=== PATIENT | male | born 1975 | race Caucasian/White ===

== ENCOUNTER 2023-03-01 15:39 | Emergency (ER) | payer OTHER ==
[~2023-03-01] VITALS: Ht 182.9 cm; Wt 82.0 kg
[~2023-03-01 15:39] MED LIST: KEPP500 PO; NIFE20CA PO; TOPA200 PO
[2023-03-01 15:49] VITALS: O2SAT 99
[2023-03-01] MEDS ORDERED: LEVETIRACETAM 1000MG PREMIX 100 ML IV ONE (16:15)
[2023-03-01 16:42] LABS: BASOPHILS % 0.6 % (0.0-2.0); EOSINOPHILS % 0.5 % (0.0-5.0); HEMATOCRIT. 42.1 % (42.0-52.0); HEMOGLOBIN. 14.1 g/dL (14.0-18.0); LYMPHOCYTES % 34.7 % (20.0-50.0); MEAN CORPUSCULAR HEMOGLOBIN 32.5 pg (28.0-32.0); MEAN CORPUSCULAR HGB CONC 33.4 g/dL (31.0-37.0); MEAN CORPUSCULAR VOLUME 97.3 fL (80.0-94.0); MONOCYTES % 10.3 % (2.0-8.0); NEUTROPHILS % 53.9 % (40.0-76.0); PLATELET 328 x1000/uL (130-400); RED BLOOD CELL COUNT 4.33 mill/uL (4.7-6.1); RED CELL DISTRIBUTION WIDTH 14.7 % (11.6-14.6); WHITE BLOOD COUNT 4.8 x1000/uL (4.5-11.0)
[2023-03-01 16:48] LABS: CHLORIDE 115 mEq/L (98-107); INDEX HEMOLYSI 2 (1-3); INDEX ICTERIC 1 (1-4); INDEX LIPEMIC 1 (1-3); POTASSIUM 3.2 mEq/L (3.5-5.1); SODIUM 143 mEq/L (136-145)
[2023-03-01 16:56] LABS: ALANINE AMINOTRANSFERASE 106 IU/L (13-61); ALBUMIN 3.9 g/dL (3.4-5.0); ASPARTATE AMINOTRANSFERASE 61 IU/L (15-37); BILIRUBIN TOTAL 0.4 mg/dL (0.1-1.0); CALCIUM 8.8 mg/dL (8.5-10.1); CARBON DIOXIDE 16 mEq/L (21-32); CREATININE 0.7 mg/dL (0.6-1.3); GLUCOSE 128 mg/dL (70-105); PROTEIN TOTAL 7.5 g/dL (6.0-8.3); UREA NITROGEN BLOOD 10 mg/dL (7-21)
[2023-03-01] MEDS ORDERED: TOPIRAMATE 100MG TABLET PO SCH (19:45)
[2023-03-01] MEDS ORDERED: CLONIDINE 0.1MG TABLET PO ONE (21:00)
[2023-03-01] MEDS ORDERED: ACETAMINOPHEN 325MG TABLET PO ONE (23:30)
[2023-03-01] MEDS ORDERED: ACET-2708 MT (23:44)
[2023-03-02 00:45] VITALS: BP 156/110; PULSE 89; RESP 20; TEMP 98.1
== END 2023-03-02 00:45 | disposition home or self-care (01) ==
LOC: ER 15:39
DX: R56.9 Unspecified convulsions (principal); I10 Essential (primary) hypertension; E78.00 Pure hypercholesterolemia, unspecified
CPT/HCPCS: 80053; 85025; 36415; 70450; 96365; 99285; J1953; Z7610 ×2